=== PATIENT | female | born 1945 | race Caucasian/White ===

== ENCOUNTER 2017-02-07 10:10 | Emergency (ER) | payer MEDICARE, OTHER ==
[~2017-02-07] VITALS: Ht 172.7 cm; Wt 81.0 kg
[~2017-02-07 10:10] MED LIST: AMOXICILLIN/CL875 MG PO; BUPROPION HCL100 M2 PO; BUPROPION300 MG PO; CIPRODEX1 ML AD; CIPROFLOXACN250 MG PO; CLONAZEPAM0.5 MG PO; CLONAZEPAM1 MG PO; CRANBERRY1 TA1 PO; EFFEXOR XR37.5 MG PO; ESTROVE1 PO; FLEXERIL5 M1 PO; FLORASTOR250 M1 PO; FLUARIX QUADRIV1 IN2 IM; FLUARIX QUADRIV1 INJ IM; HYDROCHLOROT25 MG PO; KEFLEX500 MG PO; LAMICTAL100 MG PO; LIPITOR10 M1 PO; LIPITOR20 MG PO; LISINOPRIL10 MG PO; LORCET PO; LORTAB 7.57.5 MG PO; LOSARTAN POT50 MG PO; MAGNESIUM500 MG PO; MAXITROL0.1 % OU; MELATONIN CR10 MG PO; MELOXICAM15 MG PO; METHOCARBAM500 MG PO; METOPROL TAR25 MG PO; METOPROLOL TART50 MG PO; NORCO1 TA1 PO; NYSTAT/TRIA2 EX; OMEPRAZOLE20 MG PO; PHILLIPS PO; PROAIR HFA IN; RYBIX ODT50 MG PO; TRAMADOL HCL50 MG PO; TYLENOL # 31 TA1 PO; VESICARE5 M1 PO; VITA D-1000 PO; VITAMIN D-31000 UNI1 PO; ZPAK PO; ZYRTEC10 MG PO
[2017-02-07 12:27] VITALS: BP 151/82
== END 2017-02-07 12:27 | disposition home or self-care (01) ==
LOC: ED 10:10
DX: S39.012A Strain of muscle, fascia and tendon of lower back, initial encounter (principal); W18.39XA Other fall on same level, initial encounter; Y93.H2 Activity, gardening and landscaping; Y92.007 Garden or yard of unspecified non-institutional (private) residence as the place of occurrence of the external cause

== ENCOUNTER 2017-05-25 06:40 | Day surgery (SDC) | payer MEDICARE, OTHER ==
[~2017-05-25] VITALS: Ht 172.7 cm; Wt 80.7 kg
[~2017-05-25 06:40] MED LIST changes: +ACETAMIN500 M2 PO; +B121000 MCG; +CYMBALTA60 MG PO; +KEFLEX500 M1 PO; +LAXATIVE FORMULA PO; +LYRICA75 MG PO; +NORVASC5 M1 PO; +[UNRECOGNIZED DRUG - OTHER]
[2017-05-25 08:34] VITALS: BP 138/82
== END 2017-05-25 08:52 | disposition home or self-care (01) ==
LOC: ORM 06:40
PROVIDERS: ATTEND Anesthesiology Pain Medicine
PROC: 3E0T33Z Introduction of Anti-inflammatory into Peripheral Nerves and Plexi, Percutaneous Approach (ICD-10-PCS; principal; 2017-05-25)
PROC: 3E0T3BZ Introduction of Anesthetic Agent into Peripheral Nerves and Plexi, Percutaneous Approach (ICD-10-PCS; 2017-05-25)
PROC: 3E0T33Z Introduction of Anti-inflammatory into Peripheral Nerves and Plexi, Percutaneous Approach (ICD-10-PCS; 2017-05-25)
PROC: 3E0T3BZ Introduction of Anesthetic Agent into Peripheral Nerves and Plexi, Percutaneous Approach (ICD-10-PCS; 2017-05-25)
PROC: 3E0T33Z Introduction of Anti-inflammatory into Peripheral Nerves and Plexi, Percutaneous Approach (ICD-10-PCS; 2017-05-25)
PROC: 3E0T3BZ Introduction of Anesthetic Agent into Peripheral Nerves and Plexi, Percutaneous Approach (ICD-10-PCS; 2017-05-25)
PROC: 3E0T33Z Introduction of Anti-inflammatory into Peripheral Nerves and Plexi, Percutaneous Approach (ICD-10-PCS; 2017-05-25)
PROC: 3E0T3BZ Introduction of Anesthetic Agent into Peripheral Nerves and Plexi, Percutaneous Approach (ICD-10-PCS; 2017-05-25)
PROC: 3E0T33Z Introduction of Anti-inflammatory into Peripheral Nerves and Plexi, Percutaneous Approach (ICD-10-PCS; 2017-05-25)
PROC: 3E0T3BZ Introduction of Anesthetic Agent into Peripheral Nerves and Plexi, Percutaneous Approach (ICD-10-PCS; 2017-05-25)
DX: M54.5 Low back pain (principal); M46.1 Sacroiliitis, not elsewhere classified

== ENCOUNTER 2017-06-08 06:46 | Day surgery (SDC) | payer MEDICARE, OTHER ==
[2017-06-08] MEDS ORDERED: VENLAFAXINE75 MG PO (07:27)
[2017-06-08] MEDS ORDERED: HYDROXYCHLOR200 M1 PO (07:27)
[2017-06-08] MEDS ORDERED: ZYRTEC10 MG PO (07:28)
[2017-06-08] MEDS ORDERED: [UNRECOGNIZED DRUG - OTHER] PO (07:29)
[2017-06-08] MEDS ORDERED: B12 PO (07:30)
[2017-06-08] MEDS ORDERED: D3 MAXIMUM5000 UNI1 PO (07:31)
[2017-06-08 08:47] VITALS: BP 131/73
== END 2017-06-08 09:00 | disposition home or self-care (01) ==
LOC: ORM 06:46
PROVIDERS: ATTEND Anesthesiology Pain Medicine
PROC: 3E0T33Z Introduction of Anti-inflammatory into Peripheral Nerves and Plexi, Percutaneous Approach (ICD-10-PCS; principal; 2017-06-08)
PROC: 3E0T3BZ Introduction of Anesthetic Agent into Peripheral Nerves and Plexi, Percutaneous Approach (ICD-10-PCS; 2017-06-08)
PROC: 3E0T33Z Introduction of Anti-inflammatory into Peripheral Nerves and Plexi, Percutaneous Approach (ICD-10-PCS; 2017-06-08)
PROC: 3E0T3BZ Introduction of Anesthetic Agent into Peripheral Nerves and Plexi, Percutaneous Approach (ICD-10-PCS; 2017-06-08)
PROC: 3E0T33Z Introduction of Anti-inflammatory into Peripheral Nerves and Plexi, Percutaneous Approach (ICD-10-PCS; 2017-06-08)
PROC: 3E0T3BZ Introduction of Anesthetic Agent into Peripheral Nerves and Plexi, Percutaneous Approach (ICD-10-PCS; 2017-06-08)
PROC: 3E0T33Z Introduction of Anti-inflammatory into Peripheral Nerves and Plexi, Percutaneous Approach (ICD-10-PCS; 2017-06-08)
PROC: 3E0T3BZ Introduction of Anesthetic Agent into Peripheral Nerves and Plexi, Percutaneous Approach (ICD-10-PCS; 2017-06-08)
PROC: 3E0T33Z Introduction of Anti-inflammatory into Peripheral Nerves and Plexi, Percutaneous Approach (ICD-10-PCS; 2017-06-08)
PROC: 3E0T3BZ Introduction of Anesthetic Agent into Peripheral Nerves and Plexi, Percutaneous Approach (ICD-10-PCS; 2017-06-08)
DX: M54.5 Low back pain (principal); M46.1 Sacroiliitis, not elsewhere classified

== ENCOUNTER 2017-06-29 06:06 | Day surgery (SDC) | payer MEDICARE, OTHER ==
[~2017-06-29] VITALS: Ht 172.7 cm; Wt 80.7 kg
[~2017-06-29 06:06] MED LIST changes: +B12 PO; +D3 MAXIMUM5000 UNI1 PO; +HYDROXYCHLOR200 M1 PO; +VENLAFAXINE75 MG PO; +[UNRECOGNIZED DRUG - OTHER] PO
[2017-06-29] MEDS ORDERED: LAMICTAL XR200 MG PO (06:28)
[2017-06-29 08:31] VITALS: BP 145/69
[2017-06-29] MEDS ORDERED: LYRICA75 MG PO (08:48)
== END 2017-06-29 08:58 | disposition home or self-care (01) ==
LOC: ORM 06:06
PROVIDERS: ATTEND Anesthesiology Pain Medicine
PROC: 3E0T3TZ Introduction of Destructive Agent into Peripheral Nerves and Plexi, Percutaneous Approach (ICD-10-PCS; principal; 2017-06-29)
PROC: 3E0T3TZ Introduction of Destructive Agent into Peripheral Nerves and Plexi, Percutaneous Approach (ICD-10-PCS; 2017-06-29)
DX: M54.5 Low back pain (principal); M79.2 Neuralgia and neuritis, unspecified

== ENCOUNTER 2017-08-24 07:08 | Day surgery (SDC) | payer MEDICARE, OTHER ==
[~2017-08-24] VITALS: Ht 172.7 cm; Wt 83.9 kg
[~2017-08-24 07:08] MED LIST changes: +LAMICTAL XR200 MG PO; +LAMICTAL150 MG PO
[2017-08-24 09:14] VITALS: BP 157/70
== END 2017-08-24 09:52 | disposition home or self-care (01) ==
LOC: ORM 07:08
PROVIDERS: ATTEND Anesthesiology Pain Medicine
PROC: 3E0T3TZ Introduction of Destructive Agent into Peripheral Nerves and Plexi, Percutaneous Approach (ICD-10-PCS; principal; 2017-08-24)
DX: M54.5 Low back pain (principal); M79.2 Neuralgia and neuritis, unspecified; M53.3 Sacrococcygeal disorders, not elsewhere classified